=== PATIENT | male | born 1995 | race African-American/Black ===

== ENCOUNTER 2017-08-29 22:07 | Emergency (ER) | payer SELFPAY ==
[~2017-08-29] VITALS: Ht 175.3 cm; Wt 85.6 kg
[2017-08-29 22:27] VITALS: BP 149/67; PULSE 86; RESP 16; TEMP 98.3; O2SAT 99
--- NOTE | 2017-08-29 23:16 | PD ---
HPI Chief Complaint: Back/ Neck Pain or Injury Time Seen by Provider: 23:03 Travel History International Travel<30 days: No Contact w/Intl Traveler<30days: No Traveled to known affect area: No History of Present Illness HPI The patient is 21 year old male who presents to the [facility] emergency department with a history of low back pain for the last 2 weeks ago. The patient reports that it began when he was working out. 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 He reports that he has not taking anything for the pain. He reports that the pain is down in the low back bilaterally. He reports that he also has hamstring pain in bilateral hamstrings. He reports that it is worse than the left compared to the right. He reports that he strained his hamstring years ago and intermittently will have pain at that site. He denies any new injury to his hamstrings. He reports that today he had spasm in his low back thus prompting his emergency department visit. He reports that his mother was concerned that he may need an MRI. He reports that his mother was also concerned that he may be dehydrated. The patient reports that his mother believes that he has not been drinking enough fluids. He denies having any vomiting or diarrhea. When asked why he has not been drinking fluids, he reports that he is unsure. He denies having any dysuria, urinary frequency, or urinary urgency. He denies having any penile discharge, scrotal pain or swelling. He does report that he had a new sexual partner a week ago, however he uses condoms always. Otherwise on review of systems, he denies having any recent cough or congestion, neck pain , chest pain, shortness of breath, abdominal pain, upper or lower extremity weakness, loss of bowel or bladder control, history of IV drug use, recent unexplained weight loss, or night sweats. PFSH Past Medical History Narrative Medical The patient's past medical history is significant for none. Medical History: Denies Significant Hx Past Surgical History Narrative Surgical The patient's past surgical history is reportedly significant for left wrist ORIF. Other Surgery: Yes Social History Alcohol Use: No Tobacco Use: No Substance Use: No Allergies-Medications (Allergen,Severity, Reaction): Coded Allergies: No Known Allergies (Unverified , 08/29/17) Reported Meds & Prescriptions Reported Meds & Active Scripts Active No Active Prescriptions or Reported Medications None Review of Systems Except as stated in HPI: all other systems reviewed are Neg General / Constitutional: No: Fever, Weight Loss Eyes: No: Visual changes HENT: No: Headaches Cardiovascular: No: Chest Pain or Discomfort Respiratory: No: Shortness of Breath Gastrointestinal: No: Abdominal Pain Genitourinary: No: Dysuria Musculoskeletal: Positive: Myalgias, Pain Skin: No Rash Neurologic: No: Weakness, Focal Abnormalities, Change in Mentation, Slurred Speech, Sensory Disturbance Psychiatric: No: Depression Endocrine: No: Polydipsia Hematologic/Lymphatic: No: Easy Bruising Physical Exam Narrative General: The patient is a well-developed well-nourished male in no acute distress. The patient is talking on the phone on my arrival to the room. Head and Neck exam: Head is normocephalic atraumatic. Eyes: EOMI, pupils are equal round and reactive to light. Nose: Midline septum with pink mucous membranes Mouth: Dentition unremarkable. Moist mucus membranes. Posterior oropharynx is not erythematous. No tonsillar hypertrophy. Uvula midline. Airway patent. Neck: No palpable lymphadenopathy. No nuchal rigidity. No thyromegaly. Cardiovascular: Regular rate and rhythm without murmurs, gallops, or rubs. Lungs: Clear to auscultation bilaterally. No wheezes, rhonchi, or rales. Abdomen: Soft, without tenderness to palpation in all 4 quadrants of the abdomen. No guarding, rebound, or rigidity. Normal bowel sounds are audible. No tenderness on palpation of McBurney's point. Negative Cortes sign. Extremities: No clubbing, cyanosis, or edema. 2+ pulses in all 4 extremities. No calf tenderness on palpation. The patient reports having some tenderness on palpation of the left hamstring, however there is no deformity, no erythema or ecchymosis. No swelling. He has full range of motion. Back: No spinous process tenderness to palpation. No costovertebral angle tenderness to palpation. The patient reports having muscle tightness and tenderness on palpation along the lumbar paraspinal musculature. There is no erythema or ecchymosis. No step-off or crepitus. Neurologic Exam: Cranial nerves 2-12 were intact on exam. Strength is 5/5 in all 4 extremities. No sensory deficits noted. Negative straight leg raise bilaterally. Skin Exam: No rash noted. Intact skin that is warm and dry. Data Data Last Documented VS Vital Signs Date Time Temp Pulse Resp B/P (MAP) Pulse Ox O2 Delivery O2 Flow Rate FiO2 08/29/17 22:27 98.3 86 16 149/67 (94) 99 Orders Orders Ibuprofen (Motrin) (08/29/17 23:45) Oral Rehydration (08/29/17 23:37) MDM Medical Decision Making Medical Screen Exam Complete: Yes Emergency Medical Condition: Yes Medical Record Reviewed: Yes Differential Diagnosis Musculoskeletal strain, versus lumbar radiculopathy, versus hamstring tear Narrative Course During the course of the patient's emergency department visit, the patient's history, examination, and differential diagnosis were reviewed with the patient. The patient reports that his mother would like him to have an MRI and IV access obtained for IV fluids. I explained that the patient has no indications for an MRI emergently. We discussed the warning signs for emergent need of MRI including weakness in his extremities, fevers, unexplained weight loss, night sweats, loss of bowel or bladder control. Additionally, if the patient does have a herniated disc in his back, most of these will resolve on their own within 8 weeks of onset of symptoms. I think it is a low likelihood that the patient has a lumbar radiculopathy given his symptoms. The patient's symptoms are most consistent with a lumbar strain and hamstring strain. The patient was instructed that he could take a muscle relaxer as needed for spasms. I recommended that he only use this in the evening. He was instructed to not use this while training, playing football, working out, or driving. Regarding the patient's mother requesting IV access be obtained and administering IV fluids, I explained that this is also not indicated as the patient has no vomiting and can tolerate p.o. intake. The patient was initially provided p.o. hydration, ibuprofen 400 mg p.o. 1. The patient will be discharged home with a prescription for Flexeril. The patient is resting comfortably and feels better, is alert and in no distress. The patient's results and examination findings were discussed with the patient. The repeat examination is unremarkable and benign. The history, exam, diagnostic testing, and current condition do not suggest any significant pathology to warrant further testing, continued ED treatment, admission, or surgical evaluation at this point. The vital signs have been stable. The patient does not have uncontrollable pain, intractable vomiting, or other significant symptoms. The patient's condition is stable and appropriate for discharge. The patient will pursue further outpatient evaluation with a primary care physician or other designated or consulting physician as indicated in the discharge instructions. The patient expressed understanding and was agreeable with this plan. Diagnosis Primary Impression: Strain of lumbar paraspinal muscle Qualified Codes: S39.012A - Strain of muscle, fascia and tendon of lower back , initial encounter Additional Impressions: Left hamstring muscle strain Qualified Codes: S76.312A - Strain of muscle, fascia and tendon of the posterior muscle group at thigh level, left thigh, initial encounter Muscle spasm Referrals: Primary Care Physician 1 week Patient Instructions: General Instructions, Muscle Spasm (ED), Muscle Strain ( ED) Additional Instructions: The patient's symptoms are most consistent with a lumbar strain and hamstring strain. The patient was instructed that he could take a muscle relaxer as needed for spasms. I recommended that he only use this in the evening. He was instructed to not use this while training, playing football, working out, or driving. The patient is instructed to take an over the counter anti- inflammatory pain medication such as Ibuprofen as needed as well as written on the package. He is instructed to follow-up with a primary care physician as an outpatient for consideration of physical therapy. Med/Other Pt SpecificInfo: Prescription(s) given Scripts Cyclobenzaprine (Flexeril) 5 Mg Tab 5 MG PO TID Y for SPASM, #15 TAB 0 Refills Prov: Ashley Kelly MD 08/29/17 Disposition: 01 DISCHARGE HOME Condition: Stable Ashley Kelly MD Aug 29, 2017 23:15
[2017-08-29] MEDS ORDERED: IBUPROFEN 400 MG TAB PO ONE (23:45)
[2017-08-29] MEDS ORDERED: CYCL5TAB PO (23:54)
== END 2017-08-30 00:19 | disposition home or self-care (01) ==
LOC: NEPE 22:07
DX: S39.012A Strain of muscle, fascia and tendon of lower back, initial encounter (principal); S76.312A Strain of muscle, fascia and tendon of the posterior muscle group at thigh level, left thigh, initial encounter; M62.838 Other muscle spasm; X50.9XXA Other and unspecified overexertion or strenuous movements or postures, initial encounter; Y93.B9 Activity, other involving muscle strengthening exercises
CPT/HCPCS: 99283